=== PATIENT | female | born 1960 | race African-American/Black ===

== ENCOUNTER 2021-01-29 23:10 | Emergency (ER) | payer OTHER ==
[2021-01-29 23:17] VITALS: BP 110/99; PULSE 78; TEMP 98.9; BMI 24.7
[2021-01-30] MEDS ORDERED: IBUPROFEN 600 MG TABLET (FP) PO ONE ×2 (00:58→01:03)
== END 2021-01-30 01:28 | disposition home or self-care (01) ==
LOC: JER 23:10
DX: Z04.3 Encounter for examination and observation following other accident (principal); W50.3XXA Accidental bite by another person, initial encounter; Y92.9 Unspecified place or not applicable
CPT/HCPCS: 99283-25

== ENCOUNTER 2023-07-28 09:35 | Emergency (ER) | payer OTHER, BC ==
[2023-07-28 09:51] VITALS: BP 139/82; PULSE 74; RESP 18; TEMP 97.9; BMI 27.3
[2023-07-28] MEDS ORDERED: FLUORESCEIN NA 1 EA STRIP ONE (10:07)
[2023-07-28] MEDS: FLUORESCEIN NA 1 EA STRIP OU ONE (10:07)
[2023-07-28] MEDS: TETRACAINE 0.5% HCL 0.6ML DROPPER.BOTTLE OU ONE (10:07)
[2023-07-28] MEDS ORDERED: TETRACAINE 0.5% OPHTH SOLN 2 ML BOTTLE ONE (10:07)
[2023-07-28] MEDS ORDERED: BACITRACIN ZINC 15 GM TUBE TOPICAL OINTMENT ONE (10:26)
[2023-07-28] MEDS ORDERED: ERYTHROMYCIN 0.5% OPHTHALMIC OINTMENT 3.5 GM TUBE ONE (10:28)
[2023-07-28] MEDS: ERYTHROMYCIN 0.5% OPHTHALMIC OINTMENT 3.5 GM TUBE OS SCH (10:29)
== END 2023-07-28 10:30 | disposition home or self-care (01) ==
LOC: JERFT 09:35
DX: H57.12 Ocular pain, left eye (principal); H00.014 Hordeolum externum left upper eyelid
CPT/HCPCS: 99283-25